=== PATIENT | male | born 1950 | race Caucasian/White ===

== ENCOUNTER 2018-01-04 08:01 | Outpatient (CLI) | payer MEDICARE, BC ==
--- NOTE | 2018-01-04 09:51 | CT ---
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 TECHNIQUE: Noncontrast enhanced CT images of the brain obtained. FINDINGS: A surgical clip is seen in the atrophied left posterior fossa and cerebellum. Previous left-sided craniotomy changes noted. No evidence of acute intracranial masses, hemorrhages, or strokes seen. No significant evidence of brain atrophy in the rest of the brain seen. No eviden ce of subdural or epidural hematoma is seen. IMPRESSION: 1. Old posterior fossa left cerebellar changes with post surgical changes seen in the left calvarium . 2. No evidence of acute intracranial pathology is seen. 3. No definite evidence of significant intracranial atrophy is seen. POS: [facility]
--- NOTE | 2018-01-04 16:44 | PET ---
DEMENTIA PET SCAN: HISTORY: Alzheimer disease with early onset dementia. CORRELATION: Noncontrast CT scan from the same day. TECHNIQUE: PET scanning with CT attenuation correction of the brain was performed following the intravenous admi nistration of 9 millicuries F18 fluorodeoxyglucose in the left hand. Imaging was performed after an uptake interval of 50 minutes. FINDINGS: There is fairly symmetric tracer localization in the brain. No significant hypometabolic or hypermet abolic regions are identified, except for old posterior fossa left cerebellar changes corresponding t o the findings on the CT scan. No hypometabolic activity is seen in the posterior cingulate gyrus. IMPRESSION: No scintigraphic evidence of temporoparietal hypometabolism. POS: [id number]
== END 2018-01-04 08:02 | disposition home or self-care (01) ==
LOC: PET 08:01 → CT 08:02
PROVIDERS: ATTEND Psychiatry & Neurology Neurology
DX: G30.0 Alzheimer's disease with early onset (principal); G25.0 Essential tremor; Z98.890 Other specified postprocedural states
CPT/HCPCS: 70450; 78608; A9552